=== PATIENT | female | born 2000 | race Caucasian/White ===

== ENCOUNTER 2021-06-20 04:38 | Emergency (ER) | payer MEDICAID, OTHER ==
[~2021-06-20] VITALS: Ht 152.4 cm; Wt 69.2 kg
[2021-06-20 04:55] VITALS: BP 120/65
[2021-06-20] MEDS ORDERED: IBUP-1984 PO (09:40)
== END 2021-06-20 09:51 | disposition home or self-care (01) ==
LOC: ER 04:38
DX: M25.561 Pain in right knee (principal); Z79.899 Other long term (current) drug therapy
CPT/HCPCS: 73564; 99283